=== PATIENT | female | born 1960 | race Caucasian/White ===

== ENCOUNTER 2021-04-08 12:53 | Emergency (ER) | payer OTHER ==
[~2021-04-08] VITALS: Ht 180.3 cm; Wt 70.0 kg
[~2021-04-08 12:53] MED LIST: AMLO1TAB15 PO; NAPR-683 PO; SIMV20TA18 PO
[2021-04-08 13:07] VITALS: BP 131/73
--- NOTE | 2021-04-08 13:54 | RAD ---
XR EXAM OF ANKLE_RIGHT 3VIEWS History: Pain. Comparison: None. Technique: 3 views the right ankle. Findings: Osseous mineralization is normal. No fracture or dislocaton. Ankle mortise and talar dome are intact. No significant degenerative changes. Soft tissues are unremarkable. Impression: 1. No acute osseous abnormality of the right ankle. Electronically signed by: Omega Keller MD (04/08/2021 1:52 PM) [id number]
--- NOTE | 2021-04-08 13:55 | RAD ---
XR KNEE 4 VIEWS WITH PATELLA_RT History: Pain. Comparison: None. Technique: 4 views of the right knee. Findings: Osseous mineralization is normal. No fracture or dislocaton. Tricompartment minimal degenerative parada ges with osteophytes greatest at the patellofemoral and medial tibiofemoral compartments. Mild medial tibiofemoral compartment narrowing. Moderate suprapatellar effusion. Impression: 1. Moderate pleural effusion and mild degenerative changes of the right knee without acute osseous a bnormality. Electronically signed by: Omega Keller MD (04/08/2021 1:53 PM) [id number]
--- NOTE | 2021-04-08 14:12 | PHYS DOC ---
Past Medical History Past Medical History: Bipolar, Depression, GERD, High Cholesterol, Hypert ension, Other Additional Past Medical Histor: osteoporosis (ANTONY BEE LEAD RADIATION THERAPIST) Past Surgical History: Cholecystectomy, Hysterectomy, Tubal ligation Additional Past Surgical Histo: rt knee acl, alfredito carpal tunnel (ANTONY BEE LEAD RADIATION THERAPIST) Smoking Status: Current Every Day Smoker Alcohol Use: None Drug Use: None (ANTONY BEE LEAD RADIATION THERAPIST) General Adult EDM: Chief Complaint: LOWER EXTREMITY SWELLING HPI: HPI: Patient is a 60 year old female who presents to the ED today complaining of 9 out of 10 right knee and right ankle pain, symptoms of been going on for weeks. Patient states she was seen by the PCP and was told she has arthritis, she states she was started on pain medicine. She states she continues to have the pain. Patient denies any injuries (ANTONY BEE LEAD RADIATION THERAPIST) Review of Systems: Review of Systems: Constitutional: Denies fever or chills. [] Musculoskeletal: Right lower extremity with no obvious deformity, soft tissue swelling noted on the right knee. Tenderness diffusely to the knee but not to the ankle. Full range of motion to the right ankle and knee. Negative Gordy sign, negative Lexi sign, negative anterior posterior drawer sign to the right knee. +2 right pedal pulse. Cap refill less than 2 seconds to right toes. Integument: Denies rash. [] Neurologic: Denies headache, focal weakness or sensory changes. [] Psychiatric: Denies depression or anxiety. [] (ANTONY BEE LEAD RADIATION THERAPIST) Heart Score: C/O Chest Pain: N/A Risk Factors: Risk Factors: DM, Current or recent (<one month) smoker, HTN, HLP, family history of CAD, obesity. Risk Scores: Score 0 - 3: 2.5% MACE over next 6 weeks - Discharge Home Score 4 - 6: 20.3% MACE over next 6 weeks - Admit for Clinical Observation Score 7 - 10: 72.7% MACE over next 6 weeks - Early Invasive Strategies (ANTONY BEE LEAD RADIATION THERAPIST) Allergies: Allergies: Allergies Coded Allergies Type Severity Reaction Last Updated Verified Amoxicillin Allergy Unknown swelling 12/23/13 Yes Penicillins Allergy Unknown swelling 12/23/13 Yes (ANTONY BEE LEAD RADIATION THERAPIST) Physical Exam: PE: Constitutional: Well developed, well nourished, no acute distress, non-toxic appearance. [] HENT: Normocephalic, atraumatic, bilateral external ears normal, oropharynx moist, no oral exudates, nose normal. [] Eyes: PERRLA, EOMI, conjunctiva normal, no discharge. [] Neck: Normal range of motion, no tenderness, supple, no stridor. [] Cardiovascular:Heart rate regular rhythm, no murmur [] Lungs & Thorax: Bilateral breath sounds clear to auscultation [] Abdomen: Bowel sounds normal, soft, no tenderness, no masses, no pulsatile m asses. [] Skin: Warm, dry, no erythema, no rash. [] Back: No tenderness, no CVA tenderness. [] Extremities: No tenderness, no cyanosis, no clubbing, ROM intact, no edema. [] Neurologic: Alert and oriented X 3, normal motor function, normal sensory function, no focal deficits noted. [] Psychologic: Affect normal, judgement normal, mood normal. [] (ANTONY BEE LEAD RADIATION THERAPIST) Current Patient Data: Vital Signs: Vital Signs Date Time Temp Pulse Resp B/P (MAP) Pulse Ox O2 Delivery O2 Flow Rate FiO2 04/08/21 13:07 98.2 67 16 131/73 (98) 95 Room Air 98.2 (ANTONY BEE APRN) EKG: EKG: [] (ANTONY BEE APRN) Radiology/Procedures: Radiology/Procedures: []PROCEDURE: KNEE RIGHT 4V XR KNEE 4 VIEWS WITH PATELLA_RT History: Pain. Comparison: None. Technique: 4 views of the right knee. Findings: Osseous mineralization is normal. No fracture or dislocaton. Tricompartment minimal degenerative changes with osteophytes greatest at the patellofemoral and medial tibiofemoral compartments. Mild medial tibiofemoral compartment narrowing. Moderate suprapatellar effusion. Impression: 1. Moderate pleural effusion and mild degenerative changes of the right knee without acute osseous abnormality. Electronically signed by: Omega Reid MD (04/08/2021 1:53 PM) [id number] DICTATED and SIGNED BY: OMEGA REID MD DATE: 04/08/21 [id number] 0 PROCEDURE: ANKLE RIGHT 3V XR EXAM OF ANKLE_RIGHT 3VIEWS History: Pain. Comparison: None. Technique: 3 views the right ankle. Findings: Osseous mineralization is normal. No fracture or dislocaton. Ankle mortise and talar dome are intact. No significant degenerative changes. Soft tissues are unremarkable. Impression: 1. No acute osseous abnormality of the right ankle. Electronically signed by: Omega Reid MD (04/08/2021 1:52 PM) [id number] DICTATED and SIGNED BY: OMEGA REID MD DATE: 04/08/21 [id number] 0 (ANTONY BEE APRN) Course & Med Decision Making: Course & Med Decision Making Pertinent Labs and Imaging studies reviewed. (See chart for details) This is a 60-year-old female patient presented to the ED today complaining of right knee pain and right ankle pain, symptoms of been going on for weeks. Right knee x-rays noted for joint effusion and DJD. Right ankle x-rays are negative for any acute findings. Ice elevation encouraged. Senthil bandage applied to the right knee and ankle by me. Neurovascular exam done by me post Senthil wrap application is normal. Follow-up with orthopedic doctor (ANTONY BEE APRN) Ashia Disclaimer: Ashia Disclaimer: This electronic medical record was generated, in whole or in part, using a voice recognition dictation system. (ANTONY BEE APRN) Departure Departure Impression: Primary Impression: Ankle pain, right Qualified Codes: M25.571 - Pain in right ankle and joints of right foot Additional Impressions: Joint effusion of knee Qualified Codes: M25.461 - Effusion, right knee Degenerative joint disease of ankle, right Qualified Codes: M19.071 - Primary osteoarthritis, right ankle and foot Disposition: 01 HOME / SELF CARE / HOMELESS Condition: STABLE Referrals: UNKNOWN PCP NAME (PCP) PETRA OLGUIN MD follow up in one week Patient Instructions: Arthritis, Degenerative-Brief, Knee Pain, [id number] Additional Instructions: You were seen for right knee and right ankle pain. Your right knee x-ray shows you have some fluid in your knee and arthritis to the knee. We put an Senthil bandage over the knee. Try to ice and elevate it. Please follow-up with the provided orthopedic doctor in 1 week Attending Signature Attending Signature I have reviewed the PA/HEMATOLOGY NURSE EDUCATOR's note and plan of care. I was available for consultation as needed during the patient's visit in the emergency department. I agree with the clinical impression, plan, and disposition. (FABY AVILA DO) ANTONY BEE APRN Apr 08, 2021 14:12 FABY AVILA DO Apr 08, 2021 16:21
== END 2021-04-08 14:24 | disposition home or self-care (01) ==
LOC: ER 12:53
DX: M19.071 Primary osteoarthritis, right ankle and foot (principal); M25.461 Effusion, right knee; K21.9 Gastro-esophageal reflux disease without esophagitis; E78.00 Pure hypercholesterolemia, unspecified; I10 Essential (primary) hypertension; F31.9 Bipolar disorder, unspecified; F17.200 Nicotine dependence, unspecified, uncomplicated; Z88.0 Allergy status to penicillin; Z88.1 Allergy status to other antibiotic agents
CPT/HCPCS: 73564; 73610; 99284

== ENCOUNTER 2022-02-07 12:20 | Emergency (ER) | payer OTHER ==
[~2022-02-07] VITALS: Ht 154.9 cm; Wt 74.4 kg
[2022-02-07] MEDS ORDERED: fentaNYL PF VIAL 100 MCG/2 ML VIAL IV PRN (13:45)
[2022-02-07] MEDS ORDERED: IV NORMAL SALINE 1000ML BAG 1,000 ML IV ONE (13:45)
[2022-02-07] MEDS ORDERED: FAMOTIDINE 20 MG/2 ML VIAL IVP ONE (13:45)
[2022-02-07 14:02] LABS: BASO % 0 % (0-3); EOS % 0 % (0-3); HEMOGLOBIN 12.7 g/dL (12.0-15.5); LYMPH # 1.3 x10^3/uL (1.0-4.8); LYMPH % 10 % (24-48); MEAN CORPUSCULAR HEMOGLOBIN 32 pg (25-35); MEAN CORPUSCULAR HGB CONC 34 g/dL (31-37); MEAN CORPUSCULAR VOLUME 93 fL (79-100); MONO # 0.7 x10^3/uL (0.0-1.1); MONO % 5 % (0-9); NEUT # 10.8 x10^3/uL (1.8-7.7); NEUT % 84 % (31-73); PLATELET COUNT 219 x10^3/uL (140-400); RED BLOOD COUNT 3.99 x10^6/uL (3.50-5.40); WHITE BLOOD COUNT 12.9 x10^3/uL (4.0-11.0)
[2022-02-07 14:16] LABS: CALCIUM 9.2 mg/dL (8.5-10.1); CREATININE 0.8 mg/dL (0.6-1.0); GFR 72.9; POTASSIUM 3.7 mmol/L (3.5-5.1)
[2022-02-07 14:21] LABS: ALBUMIN 3.6 g/dL (3.4-5.0); ALBUMIN/GLOBULIN RATIO 1.3 (1.0-1.7); MAGNESIUM 2.1 mg/dL (1.8-2.4); TOTAL BILIRUBIN 0.2 mg/dL (0.2-1.0); TOTAL PROTEIN 6.3 g/dL (6.4-8.2)
[2022-02-07 14:25] LABS: BACTERIA,URINE 0 /HPF (0-FEW); RBC,URINE 0 /HPF (0-2); WBC,URINE 0 /HPF (0-4)
[2022-02-07 15:15] VITALS: BP 130/63
--- NOTE | 2022-02-07 15:59 | RAD ---
XR CHEST 1V History: Chest/epigastric pain Comparison: CT abdomen and pelvis 02/07/2021. Technique: Portable AP radiograph of the chest. Findings: The lungs are adequately and symmetrically inflated. No airspace consolidation, pleural effusion or p neumothorax. Cardiac silhouette is at the upper limits of normal for size. Pulmonary vasculature is w ithin normal limits. Osseous structures and soft tissues are unremarkable. Impression: 1. No acute cardiopulmonary process. Electronically signed by: Omega Keller MD (02/07/2022 2:24 PM) [id number]
--- NOTE | 2022-02-07 15:59 | RAD ---
CT abdomen and pelvis without contrast PQRS statement: CT scans at this facility use dose reduction including either automated exposure cont rol, iterative reconstructions, and /or weight based radiation dosing via mA and kV modification when appropriate to reduce radiation dose to as low as reasonably achievable. HISTORY: Right lower quadrant abdominal pain. Abdomen findings: Calcified granulomas left lung base. This levels and facet spurring lower lumbar sp ine. Cholecystectomy. Liver, spleen, pancreas, adrenal glands and kidneys are unremarkable. No urinar y calculi or hydronephrosis. The appendix is negative. No obstruction or inflammation of the GI tract . Phlebolith right ovarian vein. Aorta and iliac artery calcified plaque. No abdominal fluid. Pelvis findings: Pelvic phleboliths. Hysterectomy. Ovaries are absent. No bladder calculi. Rectum and bones are unremarkable. No pelvic fluid. IMPRESSION: No acute process. Appendix is normal. No urinary calculi or hydronephrosis. Electronically signed by: Herson Zhang MD (02/07/2022 2:15 PM) [facility]
--- NOTE | 2022-02-07 16:49 | PHYS DOC ---
Past Medical History Past Medical History: Bipolar, Depression, Diabetes-Type II, GERD, High Cholesterol, Hypertension, Other Additional Past Medical Histor: osteoporosis Past Surgical History: Cholecystectomy, Hysterectomy, Tubal ligation Additional Past Surgical Histo: rt knee acl, alfredito carpal tunnel Smoking Status: Current Every Day Smoker Additional Information: 1/2 pack/day Alcohol Use: None Drug Use: None General Adult EDM: Chief Complaint: HEADACHE HPI: HPI: Patient is a 61 year old female with a history of depression, bipolar, hypertension, high cholesterol, diabetes type 2, who presents to the ED today with multiple complaints. Patient states she had a steroid injection in the right knee yesterday. She states today she noted her blood sugars were as high as 300s. She is also complaining of right lower quadrant abdominal pain that began yesterday after eating as well as a headache. Patient rates the pain as mild and intermittent. Denies any adverse exacerbating or relieving her symptoms. Review of Systems: Review of Systems: Constitutional: Denies fever or chills. [] Eyes: Denies change in visual acuity. [] HENT: Denies nasal congestion or sore throat. [] Respiratory: Denies cough or shortness of breath. [] Cardiovascular: Denies chest pain or edema. [] GI: Reports right lower quadrant abdominal pain, denies nausea, vomiting, bloody stools or diarrhea. [] : Denies dysuria. [] Musculoskeletal: Denies back pain or joint pain. [] Integument: Denies rash. [] Neurologic: Reports headache, denies focal weakness or sensory changes. [] Endocrine: Reports hyperglycemia Psychiatric: Denies depression or anxiety. [] Heart Score: C/O Chest Pain: N/A Risk Factors: Risk Factors: DM, Current or recent (<one month) smoker, HTN, HLP, family history of CAD, obesity. Risk Scores: Score 0 - 3: 2.5% MACE over next 6 weeks - Discharge Home Score 4 - 6: 20.3% MACE over next 6 weeks - Admit for Clinical Observation Score 7 - 10: 72.7% MACE over next 6 weeks - Early Invasive Strategies Current Medications: Current Medications Medications (Trade) Dose Ordered Sig/Omer Start Time Stop Time Status Last Admin Dose Admin Famotidine (Pepcid Vial) 20 mg 1X ONCE 02/07/22 13:45 02/07/22 13:46 DC 02/07/22 14:10 20 MG Fentanyl Citrate (Fentanyl 2ml Vial) 50 mcg PRN Q15MIN PRN 02/07/22 13:45 02/08/22 13:44 02/07/22 14:10 50 MCG Sodium Chloride 1,000 ml @ 1,000 mls/hr 1X ONCE 02/07/22 13:45 02/07/22 14:44 DC 02/07/22 14:09 1,000 MLS/HR Allergies: Allergies: Allergies Coded Allergies Type Severity Reaction Last Updated Verified Penicillins Allergy Severe swelling 02/07/22 Yes amoxicillin Allergy Severe swelling 02/07/22 Yes Sulfa (Sulfonamide Antibiotics) Allergy Intermediate 02/07/22 Yes cortisone Allergy Intermediate 02/07/22 Yes metformin Allergy Intermediate 02/07/22 Yes morphine Allergy Intermediate 02/07/22 Yes Physical Exam: PE: Constitutional: Well developed, well nourished, no acute distress, non-toxic appearance. [] HENT: Normocephalic, atraumatic, bilateral external ears normal, oropharynx moist, no oral exudates, nose normal. [] Eyes: PERRLA, EOMI, conjunctiva normal, no discharge. [] Neck: Normal range of motion, no tenderness, supple, no stridor. [] Cardiovascular:Heart rate regular rhythm, no murmur [] Lungs & Thorax: Bilateral breath sounds clear to auscultation [] Abdomen: Rounded abdomen bowel sounds normal, soft, diffuse tenderness through out the abdomen, no obvious point tenderness in the right upper quadrant or right lower quadrant, no masses, no pulsatile masses. [] Skin: Warm, dry, no erythema, no rash. [] Back: No tenderness, no CVA tenderness. [] Extremities: No tenderness, no cyanosis, no clubbing, ROM intact, no edema. [] Neurologic: Alert and oriented X 3, normal motor function, normal sensory function, no focal deficits noted. Cranial nerves II through XII intact Psychologic: Affect normal, judgement normal, mood normal. [] Current Patient Data: Labs: Laboratory Tests Test 02/07/22 12:45 02/07/22 13:30 02/07/22 13:53 Glucose (Fingerstick) 160 mg/dL (70-99) H Urine Collection Type Unknown Urine Color (Auto) Colorless Urine Turbidity Clear Urine pH (Auto) 6.0 (<5.0-8.0) Urine Specific [place] 1.004 (1.000-1.030) Urine Protein (Auto) Negative mg/dL (Negative) Urine Glucose (Auto)(UA) Negative mg/dL (Negative) Urine Ketones (Auto) Negative mg/dL (Negative) Urine Blood (Auto) Negative (Negative) Urine Nitrite Negative (Negative) Urine Bilirubin (Auto) Negative (Negative) Urine Urobilinogen (Auto) Normal mg/dL (Normal) Urine Leukocyte Esterase (Auto) Negative (Negative) Urine RBC 0 /HPF (0-2) Urine WBC 0 /HPF (0-4) Urine Squamous Epithelial Cells Mod /LPF Urine Bacteria 0 /HPF (0-FEW) Urine Mucus Slight /LPF White Blood Count 12.9 x10^3/uL (4.0-11.0) H Red Blood Count 3.99 x10^6/uL (3.50-5.40) Hemoglobin 12.7 g/dL (12.0-15.5) Hematocrit 37.0 % (36.0-47.0) Mean Corpuscular Volume 93 fL (79-100) Mean Corpuscular Hemoglobin 32 pg (25-35) Mean Corpuscular Hemoglobin Concent 34 g/dL (31-37) Red Cell Distribution Width 13.0 % (11.5-14.5) Platelet Count 219 x10^3/uL (140-400) Neutrophils (%) (Auto) 84 % (31-73) H Lymphocytes (%) (Auto) 10 % (24-48) L Monocytes (%) (Auto) 5 % (0-9) Eosinophils (%) (Auto) 0 % (0-3) Basophils (%) (Auto) 0 % (0-3) Neutrophils # (Auto) 10.8 x10^3/uL (1.8-7.7) H Lymphocytes # (Auto) 1.3 x10^3/uL (1.0-4.8) Monocytes # (Auto) 0.7 x10^3/uL (0.0-1.1) Eosinophils # (Auto) 0.0 x10^3/uL (0.0-0.7) Basophils # (Auto) 0.0 x10^3/uL (0.0-0.2) Sodium Level 142 mmol/L (136-145) Potassium Level 3.7 mmol/L (3.5-5.1) Chloride Level 109 mmol/L (98-107) H Carbon Dioxide Level 24 mmol/L (21-32) Anion Gap 9 (6-14) Blood Urea Nitrogen 12 mg/dL (7-20) Creatinine 0.8 mg/dL (0.6-1.0) Estimated GFR (Cockcroft-Gault) 72.9 BUN/Creatinine Ratio 15 (6-20) Glucose Level 115 mg/dL (70-99) H Calcium Level 9.2 mg/dL (8.5-10.1) Magnesium Level 2.1 mg/dL (1.8-2.4) Total Bilirubin 0.2 mg/dL (0.2-1.0) Aspartate Amino Transferase (AST) 9 U/L (15-37) L Alanine Aminotransferase (ALT) 19 U/L (14-59) Alkaline Phosphatase 85 U/L (46-116) Troponin I High Sensitivity 11 ng/L (4-50) EI-Mfx-F-Type Natriuretic Peptide 539 pg/mL (0-124) H Total Protein 6.3 g/dL (6.4-8.2) L Albumin 3.6 g/dL (3.4-5.0) Albumin/Globulin Ratio 1.3 (1.0-1.7) Lipase 35 U/L (73-393) L Laboratory Tests 02/07/22 13:53 Laboratory Tests 02/07/22 13:53 Vital Signs: Vital Signs Date Time Temp Pulse Resp B/P (MAP) Pulse Ox O2 Delivery O2 Flow Rate FiO2 02/07/22 15:15 80 18 130/63 (85) 93 Room Air 02/07/22 12:40 98.4 98.4 EKG: EKG: [] Radiology/Procedures: Radiology/Procedures: []PROCEDURE: PORTABLE CHEST 1V XR CHEST 1V History: Chest/epigastric pain Comparison: CT abdomen and pelvis 02/07/2021. Technique: Portable AP radiograph of the chest. Findings: The lungs are adequately and symmetrically inflated. No airspace consolidation, pleural effusion or pneumothorax. Cardiac silhouette is at the upper limits of normal for size. Pulmonary vasculature is within normal limits. Osseous structures and soft tissues are unremarkable. Impression: 1. No acute cardiopulmonary process. Electronically signed by: Omega Reid MD (02/07/2022 2:24 PM) [id number] DICTATED and SIGNED BY: OMEGA REID MD DATE: 02/07/22 141 PROCEDURE: CT ABDOMEN PELVIS WO CONTRAST CT abdomen and pelvis without contrast PQRS statement: CT scans at this facility use dose reduction including either automated exposure control, iterative reconstructions, and /or weight based radiation dosing via mA and kV modification when appropriate to reduce radiation dose to as low as reasonably achievable. HISTORY: Right lower quadrant abdominal pain. Abdomen findings: Calcified granulomas left lung base. This levels and facet spurring lower lumbar spine. Cholecystectomy. Liver, spleen, pancreas, adrenal glands and kidneys are unremarkable. No urinary calculi or hydronephrosis. The appendix is negative. No obstruction or inflammation of the GI tract. Phlebolith right ovarian vein. Aorta and iliac artery calcified plaque. No abdominal flu id. Pelvis findings: Pelvic phleboliths. Hysterectomy. Ovaries are absent. No bladder calculi. Rectum and bones are unremarkable. No pelvic fluid. IMPRESSION: No acute process. Appendix is normal. No urinary calculi or hydronephrosis. Electronically signed by: Christopher Zhang MD (02/07/2022 2:15 PM) [facility] DICTATED and SIGNED BY: CHRISTOPHER ZHANG MD DATE: 02/07/22 1409 Course & Med Decision Making: Course & Med Decision Making Pertinent Labs and Imaging studies reviewed. (See chart for details) This is a 61-year-old female patient presenting to the ED today with multiple complaints. Patient is complaining of hyperglycemia that began yesterday after receiving a steroid injection in the right knee. Patient is also complaining of right lower quadrant abdominal pain and a headache that began yesterday after eating CBC with a WBC of 12.9, CMP with glucose of 115, anion gap is normal. UA is negative for infection, CT of the abdomen and pelvis is negative. Cardiac work- up is negative including troponin, EKG and chest x-ray. Patient was reassured, discharged to home. Follow-up with her own PCP in 1 week Ashia Disclaimer: Ashia Disclaimer: This electronic medical record was generated, in whole or in part, using a voice recognition dictation system. Departure Departure Impression: Primary Impression: Abdominal pain, right lower quadrant Additional Impressions: Headache Qualified Codes: R51.9 - Headache, unspecified Hyperglycemia Disposition: HOME / SELF CARE / HOMELESS Condition: STABLE Referrals: UNKNOWN PCP NAME (PCP) follow up with your doctor in one week Patient Instructions: Abdominal Pain, Hyperglycemia Additional Instructions: You were evaluated in the emergency room. Your cardiac work-up, abdominal work- up, blood and urine are negative for any acute findings. Please follow-up with your doctor in 1 week ANTONY BEE APRN February 07, 2022 16:49
--- NOTE | 2022-02-08 11:50 | EKG ---
[facility] [address] [place] [address] Test Date: 2022-02-07 Test Time: 15:27:51 Pat Name: MARCOS FLEMING Department: Room: Gender: F [employer]: : 1960 Requested By: ANTONY BEE Order Number: [id number] Reading MD: Luís Sims Measurements Intervals [place] Rate: 55 P: 46 [place]: 148 QRS: 44 QRSD: 96 T: 24 QT: 460 QTc: 442 Interpretive Statements SINUS ARRHYTHMIA ATRIAL PREMATURE COMPLEX(ES) MILD NON SPECIFIC ST CHANGES Electronically Signed On 02-09-2022 10:16:50 CDT by Luís Sims
--- NOTE | 2022-02-08 14:19 | EKG ---
[facility] [address] [place] [address] Test Date: 2022-02-07 Test Time: 13:48:11 Pat Name: MARCOS FLEMING Department: Room: Gender: F [employer]: : 1960 Requested By: ANTONY BEE Order Number: [id number] Reading MD: Luís Sims Measurements Intervals [place] Rate: 69 P: -4 HI: 146 QRS: 34 QRSD: 88 T: 10 QT: 398 QTc: 428 Interpretive Statements SINUS ARRHYTHMIA NON SPECIFIC ST-T WAVE CHANGES Electronically Signed On 02-09-2022 10:18:28 CDT by Luís Sims
== END 2022-02-07 17:00 | disposition home or self-care (01) ==
LOC: ER 12:20
DX: R10.31 Right lower quadrant pain (principal); R51.9 Headache, unspecified; F31.9 Bipolar disorder, unspecified; E11.9 Type 2 diabetes mellitus without complications; K21.9 Gastro-esophageal reflux disease without esophagitis; E78.00 Pure hypercholesterolemia, unspecified; I10 Essential (primary) hypertension; F17.200 Nicotine dependence, unspecified, uncomplicated; Z90.49 Acquired absence of other specified parts of digestive tract; Z90.710 Acquired absence of both cervix and uterus; Z98.51 Tubal ligation status; Z88.0 Allergy status to penicillin; Z88.1 Allergy status to other antibiotic agents; Z88.2 Allergy status to sulfonamides; Z88.5 Allergy status to narcotic agent; Z88.8 Allergy status to other drugs, medicaments and biological substances
CPT/HCPCS: 36415; 71045; 74176; 80053; 81001; 82962; 83690; 83735; 83880; 84484; 85025; 93005; 96361; 96374; 96375; 99285; J3010; J3490; J7030